=== PATIENT | female | born 1970 | race Caucasian/White ===

== ENCOUNTER 2024-08-12 07:05 | Day surgery (SDC) | payer MEDICARE, MEDICAID, SELFPAY ==
[2024-08-11 14:01] VITALS: BMI 32.4
[2024-08-12] VITALS (10 sets, daily range): BP systolic 117–142; BP diastolic 68–90; PULSE 70–89; RESP 12–22; TEMP 36.2–37.1; O2SAT 96–98; BMI 32.5
[2024-08-12] MEDS: SODIUM CHLORIDE 0.9% 500 ML 500 ML 20 ML IV (07:57)
[2024-08-12] MEDS: DiphenhydrAMINE INJ 50 MG/ML VIAL 25 MG IV (07:59)
[2024-08-12] MEDS: fentaNYL CIT INJ 50 mCg/ML AMP 2ML (ASD USE ONLY) IV (08:03)
[2024-08-12] MEDS: MIDAZOLAM INJ 1 MG/ML VIAL 2 ML (ASD USE ONLY) 2 MG IV (08:04)
--- NOTE | 2024-08-12 08:23 | SUR.PHASEII ---
PATEINT INTO RECOVERY WITH NO ACUTE DISTRESS NOTED, V/S STABLE, NO COMPLAINTS OF PAIN OR NAUSEA AT THIS TIME. PATIENT REPOSITIONS SELF FOR COMFORT. PATIENT PASSING LARGE AMOUNTS OF FLATUS. REPORT RECEIVED FROM JOSE LLANES
== END 2024-08-12 09:19 | disposition home or self-care (01) ==
PROVIDERS: PCP Physician Assistant Medical; Referring Provider Surgery; Visit Provider Surgery
PROC: 0DBE8ZX Excision of Large Intestine, Via Natural or Artificial Opening Endoscopic, Diagnostic (ICD-10-PCS; CPT 45380; principal; 2024-08-12 08:00)
DX: K57.31 Diverticulosis of large intestine without perforation or abscess with bleeding (principal); Z80.0 Family history of malignant neoplasm of digestive organs; K64.1 Second degree hemorrhoids
CPT/HCPCS: G0105; 81025; J1200; J2250; J3010; J7040

== ENCOUNTER → 2024-09-21 | Outpatient (CLI) | payer MEDICARE, MEDICAID, SELFPAY ==
--- NOTE | 2024-09-21 09:15 | XR_ITS ---
Examination: Breast ultrasound, unilateral, left complete Date and time of exam: September 21, 2024 0929 hours INDICATIONS: 1:00 nodule 7 x 5 mm on ultrasound 03/08/2024 Technique: Real-time adrian scale ultrasonographic imaging performed left breast including all 4 quadrants as well as nipple retroareolar and axillary region. Findings: 6 x 4 mm circumscribed 1:00 IMPRESSION: BI-RADS Category 2: Benign findings
== END | disposition home or self-care (01) ==
PROVIDERS: PCP Physician Assistant Medical; Referring Provider Physician Assistant Medical; Visit Provider Physician Assistant Medical
DX: R92.8 Other abnormal and inconclusive findings on diagnostic imaging of breast (principal)
CPT/HCPCS: 76641